=== PATIENT | female | born 2000 | race African-American/Black ===

== ENCOUNTER 2018-04-12 11:44 | Emergency (ER) | payer BC ==
[~2018-04-12] VITALS: Ht 165.1 cm; Wt 97.3 kg
[2018-04-12 11:51] VITALS: BP 131/76; Ht 165.1 cm; Wt 97.3 kg
[2018-04-12] MEDS ORDERED: LANTUS INSULIN10 ML SC (11:51)
[2018-04-12 12:20] LABS: BASOPHILS 0.3 % (0-2); EOSINOPHILS 1.1 % (0-7); HEMOGLOBIN 11.1 g/dL (12-16); IMMATURE GRANULOCYTES 0.1 % (0-5); LYMPHOCYTES 35.9 % (15-50); MCHC 30.8 g/dL (31.0-37.0); MCV 55.8 fL (80.0-100.0); MEAN PLATELET VOLUME 8.5 fL (7.4-10.4); MONOCYTES 5.1 % (2-11); NEUTROPHILS 57.5 % (40-80); PLATELET COUNT 505 10x3/uL (130-400); RBC 6.45 10x6/uL (4.00-5.40); RDW 21.3 % (11.5-14.5); WBC 7.2 10x3/uL (4.8-10.8)
[2018-04-12 12:27] LABS: MCH 17.2 pg (26.0-34.0)
[2018-04-12 12:32] LABS: CALC OSMOLALITY 279 mosm/kg (275-300); CALCIUM 9.1 mg/dL (8.5-10.1); CARBON DIOXIDE 23.6 mmol/L (21.0-32.0); CHLORIDE - SERUM 99 mmol/L (98-107); CREATININE - SERUM 0.8 mg/dL (0.6-1.3); GLUCOSE 334 mg/dL (74-106); MAGNESIUM - SERUM 1.6 mg/dL (1.8-2.4); POTASSIUM - SERUM 3.9 mmol/L (3.5-5.1); SODIUM 134 mmol/L (136-145); UREA NITROGEN 10 mg/dL (7-18); eGFR NON AFRICAN AMERICAN > 90 mL/min (90-120)
== END 2018-04-12 14:21 | disposition home or self-care (01) ==
LOC: D.ER 11:44
PROVIDERS: Emergency Medicine
DX: E11.65 Type 2 diabetes mellitus with hyperglycemia (principal); Z79.4 Long term (current) use of insulin